=== PATIENT | female | born 1980 | race Caucasian/White ===

== ENCOUNTER → 2018-11-09 | Outpatient (CLI) | payer OTHER ==
[~2018-11-09] MED LIST: IBUPROFEN 800800 M1 PO; LABETALOL HCL100 MG PO; MEDROLDOSEPACK PO; REQUIP 0.25 M0.25 MG PO
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
== END ==
LOC: M.PC 08:20
DX: M51.36 Other intervertebral disc degeneration, lumbar region (principal); M25.511 Pain in right shoulder; G25.81 Restless legs syndrome; R20.0 Anesthesia of skin; M54.2 Cervicalgia; I10 Essential (primary) hypertension; K21.9 Gastro-esophageal reflux disease without esophagitis; F32.9 Major depressive disorder, single episode, unspecified; F41.9 Anxiety disorder, unspecified; K58.9 Irritable bowel syndrome, unspecified; G43.909 Migraine, unspecified, not intractable, without status migrainosus